=== PATIENT | female | born 1975 | race Caucasian/White ===

== ENCOUNTER → 2020-11-24 | Outpatient (REF) | payer BC | LOC: M LAB REF 17:22 | PROVIDERS: ATTEND Internal Medicine Endocrinology, Diabetes & Metabolism | DX: E04.1 Nontoxic single thyroid nodule (principal) ==

== ENCOUNTER → 2020-12-01 | Outpatient (REF) | payer BC | LOC: M LAB REF 08:30 | PROVIDERS: ATTEND Otolaryngology | DX: L82.1 Other seborrheic keratosis (principal) ==

== ENCOUNTER 2022-09-29 10:11 | Inpatient (IN) | payer BC ==
[~2022-09-29] VITALS: Ht 162.6 cm; Wt 90.7 kg
[2022-09-29] MEDS: MULTIVITAMINS/MINERALS THERAP 1 TAB PO SCH (09:00)
[2022-09-29] MEDS: FOLIC ACID 1MG TAB PO SCH (09:00)
[2022-09-29] MEDS: FLUoxetine 20MG CAP PO SCH (09:00)
[2022-09-29] MEDS ORDERED: MED REC IN PROGRESS XX SCH (10:40)
[2022-09-29] MEDS ORDERED: FLUO40CA PO (10:45)
[2022-09-29] MEDS ORDERED: LEVO50TA5 PO (10:45)
[2022-09-29] MEDS ORDERED: HOME MED LIST COMPLETE! XX SCH (10:50)
[2022-09-29] MEDS ORDERED: diphenhydrAMINE 25MG CAP PO PRN (18:35)
[2022-09-29] MEDS ORDERED: LORazepam 2 MG TAB PO PRN (18:35)
[2022-09-29] MEDS ORDERED: MOM 30ML SUSPENSION UDC PO PRN (18:35)
[2022-09-29] MEDS ORDERED: IBUPROFEN 400MG TAB PO PRN (18:35)
[2022-09-29] MEDS ORDERED: MAALOX 30 ML SUSP *UDC PO PRN (18:35)
[2022-09-29] MEDS ORDERED: ACETAMINOPHEN TAB 650MG DOSE (2X325MG) PO PRN (18:35)
[2022-09-29] MEDS: traZODone 50 MG TAB PO PRN (21:54)
[2022-09-29] MEDS: THIAMINE 100 MG TAB PO SCH (21:54)
[2022-09-29 22:00] VITALS: BP 127/66
[2022-09-30 05:09] VITALS: BP 127/66; TEMP 97.8; O2SAT 97
[2022-09-30] MEDS: LEVOTHYROXINE 50MCG TABLET (0.05MG) PO SCH (05:59)
[2022-09-30 06:41] VITALS: BP 138/69; TEMP 97.5; O2SAT 94
[2022-09-30 06:42] VITALS: BP 138/69
[2022-09-30] MEDS: MULTIVITAMINS/MINERALS THERAP 1 TAB PO SCH (09:28)
[2022-09-30] MEDS: FOLIC ACID 1MG TAB PO SCH (09:28)
[2022-09-30] MEDS: VENLAFAXINE **XR** 75MG CAPSULE PO SCH (09:28)
[2022-09-30] MEDS: FLUoxetine 20MG CAP PO SCH (09:28)
[2022-09-30] MEDS: THIAMINE 100 MG TAB PO SCH ×2 (09:28→21:02)
[2022-09-30 17:59] VITALS: BP 117/70; TEMP 97.2; O2SAT 99
[2022-09-30] MEDS: traZODone 50 MG TAB PO PRN (21:02)
[2022-09-30 22:29] VITALS: BP 117/70
[2022-10-01] MEDS: LEVOTHYROXINE 50MCG TABLET (0.05MG) PO SCH (05:40)
[2022-10-01 06:36] VITALS: BP 100/57; TEMP 98.1; O2SAT 97
[2022-10-01] MEDS: VENLAFAXINE **XR** 75MG CAPSULE PO SCH (07:54)
[2022-10-01] MEDS: FLUoxetine 20MG CAP PO SCH (07:54)
[2022-10-01] MEDS: THIAMINE 100 MG TAB PO SCH ×2 (07:54→21:16)
[2022-10-01] MEDS: MULTIVITAMINS/MINERALS THERAP 1 TAB PO SCH (07:54)
[2022-10-01] MEDS: FOLIC ACID 1MG TAB PO SCH (07:54)
[2022-10-01 09:00] VITALS: BP 102/66
[2022-10-01 14:08] VITALS: BP 100/66
[2022-10-01 18:18] VITALS: BP 100/66; TEMP 97.5; O2SAT 99
[2022-10-01] MEDS: traZODone 50 MG TAB PO PRN (21:16)
[2022-10-01 22:05] VITALS: BP 108/67; TEMP 98; O2SAT 98
[2022-10-02] MEDS: LEVOTHYROXINE 50MCG TABLET (0.05MG) PO SCH (05:33)
[2022-10-02 06:05] VITALS: BP 98/57; TEMP 97.4; O2SAT 99
[2022-10-02] MEDS ORDERED: VENL75CA47 PO (07:49)
[2022-10-02] MEDS ORDERED: FLUO20CA22 PO (07:49)
[2022-10-02] MEDS ORDERED: LEVO50TA5 PO (07:49)
[2022-10-02] MEDS: VENLAFAXINE **XR** 75MG CAPSULE PO SCH (08:08)
[2022-10-02] MEDS: FLUoxetine 20MG CAP PO SCH (08:08)
[2022-10-02] MEDS: FOLIC ACID 1MG TAB PO SCH (08:09)
[2022-10-02] MEDS: MULTIVITAMINS/MINERALS THERAP 1 TAB PO SCH (08:09)
== END 2022-10-02 10:43 | disposition home or self-care (01) | DRG 751 ==
LOC: M ED 10:11 → M ED INP 18:42 → M PSY 20:55
PROVIDERS: ADMIT Psychiatry & Neurology Psychiatry; ATTEND Student in an Organized Health Care Education/Training Program
DX: F33.2 Major depressive disorder, recurrent severe without psychotic features (principal); E03.9 Hypothyroidism, unspecified; F10.20 Alcohol dependence, uncomplicated; Z88.8 Allergy status to other drugs, medicaments and biological substances; Z79.899 Other long term (current) drug therapy